=== PATIENT | male | born 1960 | race Caucasian/White ===

== ENCOUNTER 2018-05-27 18:51 | Emergency (ER) | payer OTHER ==
[~2018-05-27] VITALS: Ht 172.7 cm; Wt 108.0 kg
[2018-05-27 18:53] VITALS: TEMP 36.7
[2018-05-27 19:00] VITALS: Ht 172.7 cm; Wt 108.0 kg
[2018-05-27] MEDS ORDERED: SODIUM CHLORIDE 0.9% 1000ML 1,000 ML IV STA (19:01)
[2018-05-27 19:07] VITALS: O2SAT 96
--- NOTE | 2018-05-27 19:18 | DIAGNOSTIC IMAGING REPORT ---
SINGLE VIEW CHEST CLINICAL HISTORY: Weakness. Change in mental status. FINDINGS: An AP, portable, upright chest radiograph is obtained. No prior studies are available for comparison at the time of dictation. The examination is degraded by portable technique and patient rotation. The cardiomediastinal silhouette is unremarkable. The lungs and pleural spaces are clear. No pneumothorax is seen. The bony thorax is grossly intact. IMPRESSION: No active disease in the chest. Electronically signed by: Cody Wray M.D. 05/27/2018 7:17 PM Dictated Date/Time: 05/27/2018 7:17 PM
[2018-05-27 19:23] LABS: BASO % 0.1 %; BASO ABS # 0.01 K/uL (0-0.2); EOS % 0.9 %; EOS ABS # 0.07 K/uL (0-0.5); HEMATOCRIT 44.1 % (42-52); HEMOGLOBIN 15.1 g/dL (14.0-18.0); IG# 0.02 K/uL (0.00-0.02); LYMPH % 22.3 %; LYMPH ABS # 1.74 K/uL (1.2-3.4); MEAN CELL VOLUME 83.5 fL (80-100); MEAN CORPUSCULAR HEMOGLOBIN 28.6 pg (25-34); MEAN CORPUSCULAR HGB CONC 34.2 g/dl (32-36); MONO % 9.4 %; MONO ABS # 0.73 K/uL (0.11-0.59); NEUT ABS # 5.23 K/uL (1.4-6.5); PLATELET COUNT 309 K/uL (130-400); RED CELL DISTRIBUTION WIDTH CV 12.8 % (11.5-14.5); RED CELL DISTRIBUTION WIDTH SD 38.4 fL (36.4-46.3)
--- NOTE | 2018-05-27 19:23 | EMERGENCY ROOM VISIT NOTE ---
History Report prepared by Diana: Surya Crowder Under the Supervision of: Rebeca VillanuevaO. First contact with patient: 18:55 Chief Complaint: SHORTNESS OF BREATH Stated Complaint: SWEATS, SHAKEY, DIZZY, SOB History of Present Illness The patient is a 57 year old male who presents to the Emergency Room with complaints of resolved dizziness and shortness of breath that occurred today. The patient states that this morning he felt lightheaded and noted shaking in both of his hands, but he states this passed. While driving back to [employer] from [place] from work today, he reports that he became dizzy, short of breath, and felt like he was going to pass out with an increased heart rate. He states that over the span of 15 minutes, he experienced 3 episodes of this, each lasting about 2 minutes. He notes that he did not count his heart rate. He also notes that the symptoms were not worsened with movement, exertion, or lying down. The patient denies current chest pain, shortness of breath, pain or swelling in the legs, or urinary symptoms. He reports that he currently feels mildly weak. He notes that he has not had a history of similar symptoms, blood clots in his legs or lungs, or problems with his potassium. He reports 3 hernia surgeries. He states that he does not smoke or drink alcohol. He states that he takes daily hydrochlorothiazide for his blood pressure, cholesterol medication, and antidepressants. He reports that he has taken his medication today. He states that Dr. Schulz is his PCP, and he last saw her around a year ago. Source of History: patient Onset: today Position: other (global) Quality: other (dizziness and shortness of breath) Timing: resolved Associated Symptoms: No chest pain, No urinary symptoms Note: denies pain or swelling in the legs Review of Systems See HPI for pertinent positives & negatives. A total of 10 systems reviewed and were otherwise negative. Past Medical & Surgical Surgical Problems: (1) History of hernia surgery Family History Diabetes mellitus Heart disease Social History Smoking Status: Never Smoker Smokeless Tobacco Use: No Alcohol Use: none Drug Use: none Occupation Status: employed Current/Historical Medications Scheduled Hctz/Lisinopril (Lisinopril/Hctz 10/12.5 Mg), 1 TAB PO DAILY Sertraline (Zoloft), 150 MG PO DAILY Simvastatin (Zocor), 40 MG PO QPM Allergies Coded Allergies: Codeine (Verified Allergy, Unknown, unknown, 05/27/18) Physical Exam Vital Signs Date Time Temp Pulse Resp B/P (MAP) Pulse Ox O2 Delivery O2 Flow Rate FiO2 05/27/18 20:11 72 20 138/104 96 Room Air 05/27/18 19:20 82 20 170/99 96 Room Air 82 166/110 85 153/117 05/27/18 19:09 96 Room Air 05/27/18 19:07 96 Room Air 05/27/18 19:02 93 05/27/18 18:53 36.7 91 18 138/88 94 Room Air Physical Exam GENERAL: Patient is awake, alert, and in no acute distress. Patient is resting comfortably and showing no signs of anxiety EYES: The conjunctivae are clear. The pupils are round and reactive. EARS, NOSE, MOUTH AND THROAT: The nose is without any evidence of any deformity. Mucous membranes are moist. Tongue is midline NECK: The neck is nontender and supple. RESPIRATORY: Normal respiratory effort is noted. There is no evidence of wheezing rhonchi or rales to auscultation. CARDIOVASCULAR: Regular rate and rhythm noted. There no murmurs rubs or gallops normal S1 normal S2 GASTROINTESTINAL: The abdomen is soft. Bowel sounds are present in all quadrants. Abdomen is nontender. MUSCULOSKELETAL/EXTREMITIES: There is no evidence of gross deformity. Full range of motion is noted in the hips and shoulders. SKIN: There is no obvious evidence of any rash. There are no petechiae, pallor or cyanosis noted. NEUROLOGIC: Patient is awake alert and oriented x3. [Strength is symmetric. Patellar reflexes are 2+ bilaterally.] Medical Decision & Procedures ER Provider Diagnostic Interpretation: Radiology results as stated below per my review and radiologist interpretation: SINGLE VIEW CHEST CLINICAL HISTORY: Weakness. Change in mental status. FINDINGS: An AP, portable, upright chest radiograph is obtained. No prior studies are available for comparison at the time of dictation. The examination is degraded by portable technique and patient rotation. The cardiomediastinal silhouette is unremarkable. The lungs and pleural spaces are clear. No pneumothorax is seen. The bony thorax is grossly intact. IMPRESSION: No active disease in the chest. Electronically signed by: Cody Wray M.D. 05/27/2018 7:17 PM Dictated Date/Time: 05/27/2018 7:17 PM Laboratory Results 05/27/18 19:05 Red Blood Count 5.28, Mean Corpuscular Volume 83.5, Mean Corpuscular Hemoglobin 28.6, Mean Corpuscular Hemoglobin Concent 34.2, Mean Platelet Volume 10.0, Neutrophils (%) (Auto) 67.0, Lymphocytes (%) (Auto) 22.3, Monocytes (%) (Auto) 9.4, Eosinophils (%) (Auto) 0.9, Basophils (%) (Auto) 0.1, Neutrophils # (Auto) 5.23, Lymphocytes # (Auto) 1.74, Monocytes # (Auto) 0.73, Eosinophils # (Auto) 0.07, Basophils # (Auto) 0.01 05/27/18 19:05 Test 05/27/18 19:05 05/27/18 19:07 White Blood Count 7.80 K/uL (4.8-10.8) Red Blood Count 5.28 M/uL (4.7-6.1) Hemoglobin 15.1 g/dL (14.0-18.0) Hematocrit 44.1 % (42-52) Mean Corpuscular Volume 83.5 fL (80-100) Mean Corpuscular Hemoglobin 28.6 pg (25-34) Mean Corpuscular Hemoglobin Concent 34.2 g/dl (32-36) Platelet Count 309 K/uL (130-400) Mean Platelet Volume 10.0 fL (7.4-10.4) Neutrophils (%) (Auto) 67.0 % Lymphocytes (%) (Auto) 22.3 % Monocytes (%) (Auto) 9.4 % Eosinophils (%) (Auto) 0.9 % Basophils (%) (Auto) 0.1 % Neutrophils # (Auto) 5.23 K/uL (1.4-6.5) Lymphocytes # (Auto) 1.74 K/uL (1.2-3.4) Monocytes # (Auto) 0.73 K/uL (0.11-0.59) Eosinophils # (Auto) 0.07 K/uL (0-0.5) Basophils # (Auto) 0.01 K/uL (0-0.2) RDW Standard Deviation 38.4 fL (36.4-46.3) RDW Coefficient of Variation 12.8 % (11.5-14.5) Immature Granulocyte % (Auto) 0.3 % Immature Granulocyte # (Auto) 0.02 K/uL (0.00-0.02) Prothrombin Time 9.6 SECONDS (9.0-12.0) Prothromb Time International Ratio 0.9 (0.9-1.1) Activated Partial Thromboplast Time 25.7 SECONDS (21.0-31.0) Partial Thromboplastin Ratio 1.0 Anion Gap 7.0 mmol/L (3-11) Est Creatinine Clear Calc Drug Dose 92.0 ml/min Estimated GFR () 91.7 Estimated GFR (Non- 79.1 BUN/Creatinine Ratio 18.4 (10-20) Calcium Level 8.5 mg/dl (8.5-10.1) Magnesium Level 2.0 mg/dl (1.8-2.4) Total Bilirubin 0.7 mg/dl (0.2-1) Direct Bilirubin 0.2 mg/dl (0-0.2) Aspartate Amino Transf (AST/SGOT) 16 U/L (15-37) Alanine Aminotransferase (ALT/SGPT) 35 U/L (12-78) Alkaline Phosphatase 64 U/L (45-117) Total Creatine Kinase 59 U/L (39-308) Creatine Kinase MB < 1.0 ng/ml (0.5-3.6) Creatine Kinase MB Ratio (0-3.0) Troponin I < 0.015 ng/ml (0-0.045) Total Protein 7.6 gm/dl (6.4-8.2) Albumin 3.9 gm/dl (3.4-5.0) Lipase 118 U/L (73-393) Thyroid Stimulating Hormone (TSH) 1.600 uIu/ml (0.300-4.500) Bedside D-Dimer 112 ng/mlFEU (0-450) Laboratory results per my review. Medications Administered Medications (Trade) Dose Ordered Sig/Artem Route Start Time Stop Time Status Last Admin Dose Admin Sodium Chloride 1,000 ml @ 999 mls/hr Q1H1M STAT IV 05/27/18 19:01 05/27/18 20:01 DC 05/27/18 19:20 999 MLS/HR ECG Per My Interpretation Indication: other (dizziness) Rate (beats per minute): 88 Rhythm: normal sinus Findings: no ectopy, other (no acute ST segment abnormalities) Comparison ECG Date: no prior available ED Course 1857: The patient was evaluated in room A2. A complete history and physical examination were performed. 1900: Ordered Sodium Chloride 1000 ml @ 999 mls/hr IV 2002: Upon reevaluation, the patient is resting. I discussed the results and treatment plan with him. He verbalized agreement of the treatment plan. He was discharged home. Medical Decision Differential diagnosis: Etiologies such as premature contractions, electrolyte abnormality, cardiac dysrhythmia, thyroid dysfunction, pulmonary embolism, infection, gastrointestinal, as well as others were entertained. Nursing notes reviewed. Additional history is obtained from the patient's significant other. The patient is a 57-year-old male who presented to the emergency department for dizziness and palpitations. The patient did not have any symptoms while he was in the emergency department. He thought that this could be due to anxiety but the patient does not have a formal diagnosis of anxiety. Other medical tests were obtained to try to determine the cause the patient's symptoms. The patient did not have any focal neurologic deficits. The patient was reevaluated multiple times. I discussed patient's laboratory and radiographic studies with him. He was advised to call his family doctor to schedule a follow -up appointment. He is also encouraged to discuss further testing such as echocardiogram and Holter monitoring to further evaluate the cause of his symptoms. He was also encouraged to return to the emergency department if symptoms change worsen or the need arises. Medication Reconcilliation Current Medication List: was personally reviewed by me Blood Pressure Screening Patient's blood pressure: Elevated blood pressure Blood pressure disposition: Referred to PCP Impression Primary Impression: Palpitations Additional Impression: Dizziness Scribe Attestation The scribe's documentation has been prepared under my direction and personally reviewed by me in its entirety. I confirm that the note above accurately reflects all work, treatment, procedures, and medical decision making performed by me. Departure Information Dispostion Home / Self-Care Referrals Fenr Schulz M.D. (PCP) Forms HOME CARE DOCUMENTATION FORM, IMPORTANT VISIT INFORMATION Patient Instructions My [facility] Additional Instructions Call your family doctor to schedule a follow-up appointment. You may require further studies such as an echocardiogram and Holter monitor to further evaluate the cause your symptoms. Rest and avoid any strenuous activity. Continue all medications as prescribed. You will need to have your blood pressure rechecked again because it was elevated in the emergency department today. Return to the emergency department immediately if symptoms change worsen or the need arises. Problem Qualifiers
[2018-05-27] MEDS ORDERED: SERT-234 PO (19:35)
[2018-05-27] MEDS ORDERED: SIMV40TA2 PO (19:35)
[2018-05-27] MEDS ORDERED: LSN/10125 PO (19:35)
[2018-05-27 19:36] LABS: INR 0.9 (0.9-1.1); PTT PATIENT 25.7 SECONDS (21.0-31.0)
[2018-05-27 20:00] LABS: ALBUMIN 3.9 gm/dl (3.4-5.0); ALKALINE PHOSPHATASE 64 U/L (45-117); ALT/SGPT 35 U/L (12-78); AST/SGOT 16 U/L (15-37); BLOOD UREA NITROGEN 19 mg/dl (7-18); CALCIUM 8.5 mg/dl (8.5-10.1); CARBON DIOXIDE 27 mmol/L (21-32); CKMB < 1.0 ng/ml (0.5-3.6); CREATININE 1.03 mg/dl (0.60-1.40); GLUCOSE 125 mg/dl (70-99); LIPASE 118 U/L (73-393); POTASSIUM 3.3 mmol/L (3.5-5.1); SODIUM 140 mmol/L (136-145); TOTAL PROTEIN 7.6 gm/dl (6.4-8.2)
[2018-05-27 20:11] VITALS: BP 138/104; PULSE 72; O2SAT 96
== END 2018-05-27 20:17 | disposition home or self-care (01) ==
LOC: C.EDB 18:52 → C.EDA 20:17
DX: R42 Dizziness and giddiness (principal); R00.2 Palpitations; I10 Essential (primary) hypertension; Z88.6 Allergy status to analgesic agent